=== PATIENT | male | born 1995 | race Caucasian/White ===

== ENCOUNTER 2017-04-17 13:42 | Emergency (ER) | payer OTHER ==
[~2017-04-17] VITALS: Ht 172.7 cm; Wt 93.0 kg
[~2017-04-17 13:42] MED LIST: Ativan1 MG PO; Baclofen10 MG PO; CEPH500 PO; CODACE30 PO; Crutch1 EACH EXT; Cyclobenzaprine5 MG PO; GABA100 PO; IBUP600 PO; IBUP800 PO; NAPR500 PO; Norco 5-325 Ta1 EACH PO; OXYACE5T PO; PRED10 PO; PROM25 PO; Percocet 5-3251 EACH PO; RXHYD5325 PO; RXHYDACE PO; RXOXYACE PO; TEMA7.5; TRAM50 PO; Ultram50 MG PO; Zofran8 MG PO
== END 2017-04-17 15:32 | disposition home or self-care (01) ==
LOC: ER 13:42
DX: S80.12XA Contusion of left lower leg, initial encounter (principal); E11.9 Type 2 diabetes mellitus without complications; F17.220 Nicotine dependence, chewing tobacco, uncomplicated; W22.8XXA Striking against or struck by other objects, initial encounter
CPT/HCPCS: 73590; 93971; 96372; 99284; J1885

== ENCOUNTER 2017-10-21 13:36 | Emergency (ER) | payer OTHER ==
[~2017-10-21] VITALS: Ht 172.7 cm; Wt 90.7 kg
[2017-10-21] MEDS ORDERED: Norco 5-325 Ta1 EACH PO (14:16)
== END 2017-10-21 14:38 | disposition home or self-care (01) ==
LOC: ER 13:36
DX: S62.300A Unspecified fracture of second metacarpal bone, right hand, initial encounter for closed fracture (principal); E11.9 Type 2 diabetes mellitus without complications; F17.220 Nicotine dependence, chewing tobacco, uncomplicated; W22.8XXA Striking against or struck by other objects, initial encounter
CPT/HCPCS: 73130

== ENCOUNTER 2018-01-01 15:32 | Emergency (ER) | payer OTHER ==
[~2018-01-01] VITALS: Ht 172.7 cm; Wt 95.2 kg
[2018-01-01] MEDS ORDERED: Ultram50 MG PO (16:51)
[2018-01-01] MEDS ORDERED: CEPH500 PO (16:51)
== END 2018-01-01 17:11 | disposition home or self-care (01) ==
LOC: ER 15:32
DX: L03.311 Cellulitis of abdominal wall (principal); F17.220 Nicotine dependence, chewing tobacco, uncomplicated
CPT/HCPCS: 96372; 99283; J1885

== ENCOUNTER 2018-01-06 08:43 | Emergency (ER) | payer OTHER ==
[~2018-01-06] VITALS: Ht 172.7 cm; Wt 95.2 kg
[2018-01-06] MEDS ORDERED: Truvada Tablet1 EACH PO (10:21)
[2018-01-06] MEDS ORDERED: RALT400 PO (10:21)
[2018-01-06 11:51] LABS: BASOPHILS ABSOLUTE AUTO 0.05 K/mm3 (0.00-0.23); BASOPHILS PERCENT AUTO 1 % (0-2); EOSINOPHILS ABSOLUTE AUTO 0.18 K/mm3 (0.00-0.68); EOSINOPHILS PERCENT AUTO 3 % (0-6); Hematocrit 45.6 % (37.0-53.0); Hemoglobin 15.8 g/dL (13.5-17.5); IMMATURE GRAN ABSOLUTE AUTO 0.02 K/mm3 (0.00-0.10); IMMATURE GRAN PERCENT AUTO 0 % (0-1); LYMPHOCYTES ABSOLUTE AUTO 1.39 K/mm3 (0.84-5.20); LYMPHOCYTES PERCENT AUTO 20 % (21-46); MONOCYTES PERCENT AUTO 7 % (4-13); Mean Corpuscular HGB 29.1 pg (26.0-34.0); Mean Corpuscular HGB Conc 34.6 g/dL (31.5-36.5); Mean Corpuscular Volume 84 fL (80-100); Mean Platelet Volume 11.6 fL (9.1-12.4); NEUTROPHILS ABSOLUTE AUTO 4.92 K/mm3 (1.96-9.15); NEUTROPHILS PERCENT AUTO 70 % (41-73); Platelet Count 238 K/mm3 (150-400); RDW Coefficient Variation 11.7 % (11.7-14.2); RDW Standard Deviation 35.3 fL (35.1-46.3); Red Blood Cell Count 5.43 M/mm3 (4.30-5.90); White Blood Cell Count 7.06 K/mm3 (4.00-11.30)
[2018-01-06 12:03] LABS: Alanine Aminotransfer (ALT/SGP 33 U/L (12-78); Albumin, Blood 4.4 g/dL (3.4-5.0); Albumin/Globulin Ratio 1.4 (0.8-1.8); Alk Phos 67 U/L (50-136); Anion Gap 7 mmol/L (6-16); Aspartate Aminotrans (AST/SGOT 19 U/L (12-37); Bilirubin, Total 0.5 mg/dL (0.1-1.0); Blood Urea Nitrogen 19 mg/dL (8-24); Bun/Creatinine Ratio 20.3 (12.0-20.0); CO2, Blood 28 mmol/L (21-32); Calcium, Blood 9.2 mg/dL (8.5-10.1); Chloride, Blood 107 mmol/L (98-108); Creatinine, Blood 0.94 mg/dL (0.60-1.20); Globulin, Blood 3.2 g/dL (2.2-4.0); Glomerular Filtration Rate >60 (60-); Glucose, Blood 122 mg/dL (70-99); Potassium, Blood 4.5 mmol/L (3.5-5.5); Sodium, Blood 142 mmol/L (136-145); Total Protein, Blood 7.6 g/dL (6.4-8.2)
[2018-01-07 07:11] LABS: HCV ANTIBODY <0.1 (0.0-0.9); HIV SCREEN 4TH GENERATION WRFX Non Reactive (Non Reactive)
[2018-01-07] MEDS ORDERED: Percocet 5-3251 EACH PO (15:42)
== END 2018-01-06 10:56 | disposition home or self-care (01) ==
LOC: ER 08:43
PROVIDERS: Nurse Practitioner Family
DX: S61.230A Puncture wound without foreign body of right index finger without damage to nail, initial encounter (principal); Z77.21 Contact with and (suspected) exposure to potentially hazardous body fluids; F17.220 Nicotine dependence, chewing tobacco, uncomplicated; W46.0XXA Contact with hypodermic needle, initial encounter
CPT/HCPCS: 36415; 80053; 84460; 85025; 86317; 86803; 87389; 99282

== ENCOUNTER 2018-01-07 10:58 | Emergency (ER) | payer OTHER ==
[~2018-01-07] VITALS: Ht 172.7 cm; Wt 90.7 kg
[~2018-01-07 10:58] MED LIST changes: +RALT400 PO; +Truvada Tablet1 EACH PO
[2018-01-07] MEDS ORDERED: Percocet 5-3251 EACH PO (15:42)
== END 2018-01-07 16:19 | disposition home or self-care (01) ==
LOC: ER 10:58
DX: S60.052A Contusion of left little finger without damage to nail, initial encounter (principal); S60.512A Abrasion of left hand, initial encounter; S40.812A Abrasion of left upper arm, initial encounter; F17.220 Nicotine dependence, chewing tobacco, uncomplicated; Z79.899 Other long term (current) drug therapy; V86.56XA Driver of dirt bike or motor/cross bike injured in nontraffic accident, initial encounter
CPT/HCPCS: 73130; 99284-25

== ENCOUNTER 2018-04-11 20:07 | Emergency (ER) | payer OTHER ==
[~2018-04-11] VITALS: Ht 172.7 cm; Wt 93.0 kg
[2018-04-11] MEDS ORDERED: IBUP800 PO (20:44)
[2018-04-11 22:34] LABS: Source, Urine Clean Catch
[2018-04-11 22:42] LABS: Bilirubin, Urine Neg (Neg); Blood, Urine Neg (Neg); Glucose Qualitative, Urine Neg (Neg); Ketones, Urine Neg (Neg); Leukocyte Esterase, Urine Neg (Neg); Nitrite, Urine Neg (Neg); Protein, Urine Neg (Neg); Urobilinogen, Urine NORM (Normal)
[2018-04-11 22:48] LABS: Appearance, Urine Clear (Clear); Color, Urine Yellow (P-Yellow)
[2018-04-11] MEDS ORDERED: Prednisone20 MG PO (23:17)
== END 2018-04-11 23:34 | disposition home or self-care (01) ==
LOC: ER 20:07
PROVIDERS: Emergency Medicine
DX: M54.9 Dorsalgia, unspecified (principal); E11.9 Type 2 diabetes mellitus without complications; Z79.899 Other long term (current) drug therapy
CPT/HCPCS: 81003; 96372; 99283-25; J1170; J1885

== ENCOUNTER 2018-06-19 00:01 | Emergency (ER) | payer OTHER ==
[~2018-06-19] VITALS: Ht 172.7 cm; Wt 90.7 kg
[~2018-06-19 00:01] MED LIST changes: +Prednisone20 MG PO
[2018-06-19] MEDS ORDERED: OXYC10TA19 PO (01:10)
[2018-06-19] MEDS ORDERED: METCAR500 PO (01:11)
== END 2018-06-19 01:40 | disposition home or self-care (01) ==
LOC: ER 00:01
DX: M54.6 Pain in thoracic spine (principal); E11.9 Type 2 diabetes mellitus without complications; Z79.899 Other long term (current) drug therapy; Z79.891 Long term (current) use of opiate analgesic
CPT/HCPCS: 96372; 99283-25; J1885

== ENCOUNTER 2020-10-28 14:53 | Emergency (ER) | payer OTHER | END 2020-10-28 15:54 | disposition home or self-care (01) | LOC: ER 14:53 | DX: S63.502A Unspecified sprain of left wrist, initial encounter (principal); F17.220 Nicotine dependence, chewing tobacco, uncomplicated; W19.XXXA Unspecified fall, initial encounter ==

== ENCOUNTER 2021-12-11 13:52 | Emergency (ER) | payer OTHER ==
[~2021-12-11] VITALS: Ht 172.7 cm; Wt 99.8 kg
[~2021-12-11 13:52] MED LIST changes: +METCAR500 PO; +OXYC10TA19 PO
== END 2021-12-11 16:33 | disposition home or self-care (01) ==
LOC: ER 13:52
DX: M51.36 Other intervertebral disc degeneration, lumbar region (principal); E11.9 Type 2 diabetes mellitus without complications; F17.220 Nicotine dependence, chewing tobacco, uncomplicated; Z79.899 Other long term (current) drug therapy
CPT/HCPCS: J1885

== ENCOUNTER 2022-07-11 15:53 | Emergency (ER) | payer OTHER ==
[~2022-07-11] VITALS: Ht 172.7 cm; Wt 99.8 kg
[2022-07-11] MEDS ORDERED: ONDA4 PO (17:52)
== END 2022-07-11 18:39 | disposition home or self-care (01) ==
LOC: ER 15:53
DX: G89.29 Other chronic pain (principal); M54.9 Dorsalgia, unspecified; E11.9 Type 2 diabetes mellitus without complications; F17.220 Nicotine dependence, chewing tobacco, uncomplicated
CPT/HCPCS: 36415; 96374; 96375; 99283-25; A9270; J1170; J2405

== ENCOUNTER → 2022-11-29 | Outpatient (CLI) | payer OTHER ==
[~2022-11-29] MED LIST changes: +ONDA4 PO
[2022-12-02 15:09] LABS: COTININE Negative ng/mL (Cutoff=300)
== END ==
LOC: LAB 13:04 → LAB SHORT 13:04
PROVIDERS: Physician Assistant
DX: M51.26 Other intervertebral disc displacement, lumbar region (principal)

== ENCOUNTER 2024-01-27 21:36 | Emergency (ER) | payer OTHER ==
[~2024-01-27] VITALS: Ht 172.7 cm; Wt 104.3 kg
[~2024-01-27 21:36] MED LIST changes: +LOSA25 PO; +METPRE4DP PO
[2024-01-27] MEDS ORDERED: Morphine Sulfate 4 MG/1 ML Injection IV ONE ×2 (22:05→23:05)
[2024-01-27] MEDS ORDERED: NS 1,000 ML IV SCH (22:05)
[2024-01-27 22:10] LABS: BASOPHILS ABSOLUTE AUTO 0.08 K/mm3 (0.00-0.23); BASOPHILS PERCENT AUTO 1 % (0-2); EOSINOPHILS ABSOLUTE AUTO 0.39 K/mm3 (0.00-0.68); EOSINOPHILS PERCENT AUTO 4 % (0-6); Hematocrit 42.7 % (37.0-53.0); Hemoglobin 15.3 g/dL (13.5-17.5); IMMATURE GRAN ABSOLUTE AUTO 0.03 K/mm3 (0.00-0.10); IMMATURE GRAN PERCENT AUTO 0 % (0-1); LYMPHOCYTES PERCENT AUTO 26 % (21-46); MONOCYTES ABSOLUTE AUTO 0.56 K/mm3 (0.16-1.47); MONOCYTES PERCENT AUTO 6 % (4-13); Mean Corpuscular HGB 28.7 pg (26.0-34.0); Mean Corpuscular HGB Conc 35.8 g/dL (31.5-36.5); Mean Corpuscular Volume 80 fL (80-100); Mean Platelet Volume 10.8 fL (9.1-12.4); NEUTROPHILS ABSOLUTE AUTO 6.15 K/mm3 (1.96-9.15); NEUTROPHILS PERCENT AUTO 63 % (41-73); Platelet Count 233 K/mm3 (150-400); RDW Coefficient Variation 11.9 % (11.7-14.2); RDW Standard Deviation 33.9 fL (35.1-46.3); Red Blood Cell Count 5.33 M/mm3 (4.30-5.90); White Blood Cell Count 9.71 K/mm3 (4.00-11.30)
[2024-01-27 22:24] LABS: Ethanol (Alcohol), Blood, Med <3 mg/dL
[2024-01-27 22:25] LABS: Alanine Aminotransfer (ALT/SGP 84 U/L (12-78); Albumin, Blood 4.2 g/dL (3.4-5.0); Albumin/Globulin Ratio 1.2 (0.8-1.8); Alk Phos 65 U/L (50-136); Anion Gap 10 mmol/L (3-11); Aspartate Aminotrans (AST/SGOT 38 U/L (12-37); Bilirubin, Total 0.5 mg/dL (0.1-1.0); Blood Urea Nitrogen 12 mg/dL (8-24); Bun/Creatinine Ratio 13.4 (12.0-20.0); CO2, Blood 25 mmol/L (21-32); Calcium, Blood 9.5 mg/dL (8.5-10.1); Chloride, Blood 105 mmol/L (98-108); Creatinine, Blood 0.89 mg/dL (0.60-1.20); Globulin, Blood 3.6 g/dL (2.2-4.0); Glomerular Filtration Rate 119 (60-); Glucose, Blood 130 mg/dL (70-99); Sodium, Blood 136 mmol/L (136-145); Total Protein, Blood 7.8 g/dL (6.4-8.2)
[2024-01-27 22:32] LABS: International Normalized Ratio 1.06; Prothrombin Time Results 11.3 Sec (9.7-11.5)
[2024-01-27 23:43] LABS: Source, Urine Clean Catch
[2024-01-27 23:47] LABS: Bilirubin, Urine Neg (Neg); Blood, Urine Neg (Neg); Glucose Qualitative, Urine Neg (Neg); Ketones, Urine Neg (Neg); Leukocyte Esterase, Urine Neg (Neg); Nitrite, Urine Neg (Neg); Protein, Urine Neg (Neg); Specific Gravity, Urine 1.005 (1.003-1.022); Urobilinogen, Urine NORM (Normal)
[2024-01-28 00:05] LABS: Appearance, Urine Clear (Clear); Color, Urine Pale Yellow (P-Yellow)
[2024-01-28] MEDS ORDERED: HYDROmorphone HCl/Pf 1MG SYR IV ONE (00:05)
[2024-01-28 00:06] LABS: U Amphetamine Screen Not Detected; U Barbituate Screen Not Detected; U Benzodiazapine Screen Not Detected; U Buprenorphine Screen DETECTED; U Cannabinoids Screen Not Detected; U Cocaine Screen Not Detected; U Methadone Screen Not Detected; U Methamphetamine Screen Not Detected; U Opiates Screen DETECTED; U Oxycodone Screen DETECTED; U Phencyclidine Screen Not Detected
[2024-01-28] MEDS ORDERED: HYDROmorphone HCl/Pf 1MG SYR ONE (00:10)
[2024-01-28 00:15] VITALS: BP 102/75
[2024-01-28] MEDS ORDERED: MOTRIN IB200 MG PO (00:40)
[2024-01-28] MEDS ORDERED: CYCL10 PO (00:40)
[2024-01-28] MEDS ORDERED: ACET500 PO (00:40)
[2024-01-28] MEDS ORDERED: LIDO700A20 TOP (00:40)
== END 2024-01-28 00:56 | disposition home or self-care (01) ==
LOC: ER 21:36
PROVIDERS: Student in an Organized Health Care Education/Training Program
DX: M25.552 Pain in left hip (principal); R74.01 Elevation of levels of liver transaminase levels; F11.90 Opioid use, unspecified, uncomplicated; F15.90 Other stimulant use, unspecified, uncomplicated; F17.220 Nicotine dependence, chewing tobacco, uncomplicated; E11.9 Type 2 diabetes mellitus without complications; Z79.899 Other long term (current) drug therapy
CPT/HCPCS: 70450; 71045; 71260; 72125; 72170; 73080; 73610; 74177; 80053; 80320; 81003; 83690; 85025; 85610; 93005; 93010; 96374; 96375; 96376; 99284-25; J1170; J1171; J2270; J7030; Q9967